=== PATIENT | male | born 1935 | race Caucasian/White ===

== ENCOUNTER 2022-03-04 09:47 | Outpatient (CLI) | payer OTHER, SELFPAY ==
--- NOTE | 2022-03-04 09:59 | ECHO_ITS ---
Patient Info Name: Leobardo Tinsley Age: 86 years : 1935 Gender: Male Ht: 62 in Wt: 147 lbs BSA: 1.73 m2 HR: 76 bpm BP: 144 / 85 mmHg Heart Rhythm: Sinus Rhythm Technical Quality: Fair Exam Date: 03/04/2022 10:24 AM Exam Location: [facility] Pulmonary Patient Status: Outpatient Admit Date: 03/04/2022 Staff Ordering Physician: Eliazar Moses DO Scallop Raker: Lidia Lin RDCS Attending Provider: Eliazar Moses DO Referring Physician: Josué RIDER; Exam Type: CA echo doppler color flow Study Info Indications I35.0 - Nonrheumatic aortic (valve) stenosis Complete two-dimensional, color flow and Doppler transthoracic echocardiogram is performed. Summary 1. Complete two-dimensional, color flow and Doppler transthoracic echocardiogram is performed. 2. Left ventricular chamber dimension is normal. 3. Left ventricular systolic function is normal, estimated at 65-70%. 4. The left ventricular diastolic function is grade I diastolic dysfunction. 5. E/e' 12 is mildly elevated. 6. 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 7. There is severe aortic valve stenosis with a peak velocity of 388 cm/s, mean gradient of 33 mmHg, and aortic valve area of 0.6 cm2. 8. There is trace aortic valve regurgitation. 9. The mitral valve has moderately calcified annulus. 10. There is mild tricuspid valve regurgitation. 11. No pulmonary hypertension, estimated pulmonary arterial systolic pressure is 39 mmHg. Left Ventricle E/e' 12 is mildly elevated. Left ventricular chamber dimension is normal. Left ventricular systolic function is normal, estimated at 65-70%. The left ventricular diastolic function is grade I diastolic dysfunction. Right Ventricle Right ventricular systolic function is normal and with normal TAPSE 2.1 cm. Right ventricular chamber dimension is normal. Left Atria Left atrial chamber dimension is normal. Right Atria Right atrial chamber dimension is normal. Aortic Valve The aortic valve is trileaflet. 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 There is severe aortic valve stenosis with a peak velocity of 388 cm/s, mean gradient of 33 mmHg, and aortic valve area of 0.6 cm2. There is trace aortic valve regurgitation. Pulmonic Valve There is no pulmonic regurgitation. Mitral Valve The mitral valve has moderately calcified annulus. There is no mitral valve stenosis. There is no mitral valve regurgitation. Tricuspid Valve There is mild tricuspid valve regurgitation. No pulmonary hypertension, estimated pulmonary arterial systolic pressure is 39 mmHg. Pericardium/Pleural There is no pericardial effusion. Inferior Vena Cava Normal inferior vena cava with >50% collapse upon inspiration consistent with normal right atrial pressure, 5 mmHg. Aorta The aortic root size at the sinus of Valsalva is normal. Left Ventricular Outflow Tract Name Value Normal LVOT 2D LVOT Diameter 2.0 cm LVOT Doppler LVOT Peak Gradient 3 mmHg LVOT Mean Gradient 2 mmHg LVOT VTI 18 cm LVOT VTI/AV VTI Ratio
== END 2022-03-04 09:48 | disposition home or self-care (01) ==
LOC: ANHCARD 09:48
PROVIDERS: PCP Family Medicine; Visit Provider Internal Medicine Cardiovascular Disease
DX: I35.0 Nonrheumatic aortic (valve) stenosis (principal)
CPT/HCPCS: 93306

== ENCOUNTER 2022-09-29 13:29 | Outpatient (CLI) | payer OTHER, SELFPAY ==
--- NOTE | 2022-09-29 13:37 | ECHO_ITS ---
Patient Info Name: Leobardo Tinsley Age: 86 years : 1935 Gender: Male Ht: 63 in Wt: 140 lbs BSA: 1.69 m2 HR: 84 bpm BP: 149 / 101 mmHg Heart Rhythm: Sinus Rhythm Technical Quality: Good Exam Date: 09/29/2022 2:10 PM Exam Location: [facility] Pulmonary Patient Status: Outpatient Admit Date: 09/29/2022 Staff Ordering Physician: Eliazar Moses DO Swaging Machine Adjuster: Jamir Malin RDCS Attending Provider: Eliazar Moses DO Referring Physician: Josué RIDER; Exam Type: CA echo doppler color flow Study Info Indications - Nonrheumatic aortic valve stenosis Complete two-dimensional, color flow and Doppler transthoracic echocardiogram is performed. Summary 1. Complete two-dimensional, color flow and Doppler transthoracic echocardiogram is performed. 2. Left ventricular chamber dimension is normal. 3. Left ventricular systolic function is normal, estimated at 55-60%. 4. There is mild concentric increased left ventricular wall thickness. 5. The left ventricular diastolic function is grade I diastolic dysfunction. 6. E/e' 12 is mildly elevated. 7. There is moderate aortic valve sclerosis. 8. There is moderate aortic valve stenosis with a peak velocity of 296 cm/s, mean gradient of 25 mmHg, and aortic valve area of 1.1 cm2. 9. There is mild aortic valve regurgitation. 10. The mitral valve has mildly calcified annulus. 11. There is trace mitral valve regurgitation. 12. There is mild tricuspid valve regurgitation. 13. No pulmonary hypertension, estimated pulmonary arterial systolic pressure is 37 mmHg. 14. There is trace pulmonic regurgitation. 15. Small atheroma in anterior and posterior aortic root. Left Ventricle E/e' 12 is mildly elevated. Left ventricular chamber dimension is normal. Left ventricular systolic function is normal, estimated at 55-60%. There is mild concentric increased left ventricular wall thickness. The left ventricular diastolic function is grade I diastolic dysfunction. Right Ventricle Right ventricular systolic function is normal and with normal TAPSE 2.6 cm. Right ventricular chamber dimension is normal. Left Atria Left atrial chamber dimension is normal. Right Atria Right atrial chamber dimension is normal. Aortic Valve The aortic valve is trileaflet. There is moderate aortic valve sclerosis. There is moderate aortic valve stenosis with a peak velocity of 296 cm/s, mean gradient of 25 mmHg, and aortic valve area of 1.1 cm2. There is mild aortic valve regurgitation. Pulmonic Valve There is trace pulmonic regurgitation. Mitral Valve The mitral valve has mildly calcified annulus. There is no mitral valve stenosis. There is trace mitral valve regurgitation. Tricuspid Valve There is mild tricuspid valve regurgitation. No pulmonary hypertension, estimated pulmonary arterial systolic pressure is 37 mmHg. Pericardium/Pleural There is no pericardial effusion. Inferior Vena Cava Normal inferior vena cava with >50% collapse upon inspiration consistent with normal right atrial pressure, 5 mmHg. Aorta Small atheroma in anterior and posterior aortic root. The aortic root size at the sinus of Valsalva is normal. Left Ventricular Outflow Tract Name Value Normal LVOT 2D LVOT Diameter 2.0 cm LVOT Doppler
== END 2022-09-29 13:30 | disposition home or self-care (01) ==
LOC: ANHCARD 13:30
PROVIDERS: PCP Family Medicine; Visit Provider Internal Medicine Cardiovascular Disease
DX: I35.0 Nonrheumatic aortic (valve) stenosis (principal); I36.1 Nonrheumatic tricuspid (valve) insufficiency
CPT/HCPCS: 93306

== ENCOUNTER 2023-12-17 12:41 | Observation (INO) | payer OTHER, MEDICARE, SELFPAY ==
[2023-12-17] VITALS (11 sets, daily range): BP systolic 120–148; BP diastolic 66–85; PULSE 69–100; RESP 16–22; TEMP 36.6–37.1; O2SAT 94–97
--- NOTE | ~2023-12-17 | MR_ITS ---
EXAMINATION: MR brain/brain stem wo con DATE: 12/18/2023 12:29 INDICATION: Dizziness. Possible posterior stroke. TECHNIQUE: Magnetic resonance imaging (MRI) of the brain and brainstem was performed without intraven ous contrast. Sequences included sagittal and axial T1-weighted SE, axial diffusion-weighted FS SE, a xial T2*-weighted GRE, axial 3D SWAN, axial T2-weighted FLAIR, and axial T2-weighted FSE. Apparent di ffusion coefficient (ADC) maps were created. COMPARISON: None. FINDINGS: There are no areas of restricted diffusion to suggest acute infarction. No intracranial hemorrhage or abnormal intracranial mass lesion. There are scattered areas of nonspecific increased T2-weighted si gnal intensity in the cerebral white matter, predominantly involving the deep and periventricular whi te matter. There are no intraparenchymal signal abnormalities seen on the other pulse sequences. The ventricles are symmetric and normal in size. There are no abnormal extra-axial fluid collections. Preston w voids are seen in the cerebral arteries on the T2-weighted sequences consistent with their expected patency. Changes of bilateral intraocular lens replacement. Mild mucosal thickening the bilateral et hmoid sinuses. IMPRESSION: 1. No acute intracranial process. 2. Mild scattered nonspecific periventricular predominant calcific white matter T2 hyperintensity whi ch is within normal limits for age and likely sequela of chronic small vessel ischemic disease. Reviewed, dictated and finalized at location A. IMPRESSION: 1. No acute intracranial process. 2. Mild scattered nonspecific periventricular predominant calcific white matter T2 hyperintensity which is within normal limits for age and likely sequela of chronic small vessel ischemic disease.
--- NOTE | ~2023-12-17 | XR_ITS ---
Clinical Indication: Dizziness, weakness PA and lateral views of the chest: Comparison: None Findings: The lungs are clear, without evidence of focal consolidation or pleural effusion. There is eventration of the right hemidiaphragm. Cardiomediastinal silhouette is within normal limits. Bones a nd soft tissues are unremarkable. Impression: Clear lungs. Eventration of the right hemidiaphragm. Reviewed, dictated and finalized at location M. Impression: Clear lungs. Eventration of the right hemidiaphragm.
--- NOTE | 2023-12-17 12:59 | ECG_ITS ---
Test Date: 2023-12-17 13:03:24 Measurements Intervals [place] Rate: 87 P: 55 NV: 171 QRS: -16 QRSD: 93 T: 60 QT: 352 QTc: 424 Interpretive Statements SINUS RHYTHM No previous ECG available for comparison Electronically Signed On 12-18-2023 16:13:12 CDT by Patricia Rojas M.D.
[2023-12-17 13:21] LABS: Basophils Absolute Auto 0.1 K/mm3 (0.0-0.1); Basophils Percent Auto 0.9 % (0.2-1.2); Eosinophils Absolute Auto 0.1 K/mm3 (0-0.3); Eosinophils Percent Auto 1.4 % (0-4.4); Hematocrit 45.4 % (42.0-52.0); Hemoglobin 14.8 g/dL (14.0-18.0); Immature Granulocyte Absolute 0.08 K/mm3 (0.00-0.031); Immature Granulocyte Percent A 0.9 % (0-0.5); Lymphocytes Absolute Auto 1.63 K/mm3 (0.9-3.2); Lymphocytes Percent Auto 19.3 % (18.3-44.2); Mean Corpuscular HGB Conc 32.6 g/dl (32-36); Mean Corpuscular Hemoglobin 30.7 pg (26-34); Mean Corpuscular Volume 94.2 fl (80-100); Mean Platelet Volume 9.3 fl (7.4-10.4); Monocytes Absolute Auto 0.8 K/mm3 (0.1-0.6); Neutrophils Absolute Auto 5.7 K/mm3 (1.3-6.7); Neutrophils Percent Auto 67.5 % (45.5-73.1); Platelet Count Result 298 k/mm3 (150-375); Red Blood Count 4.82 M/mm3 (4.6-6.20); White Blood Count 8.4 K/mm3 (4.5-10.0)
[2023-12-17 13:31] LABS: Alanine Aminotransferase 14 U/L (6-50); Albumin Level 4.5 g/dL (3.5-5.1); Alkaline Phosphatase 99 U/L (38-126); Anion Gap 8 mmol/L (4-12); Aspartate Amino Transferase 23 U/L (17-59); Bilirubin,Total 0.7 mg/dL (0.2-1.3); Blood Urea Nitrogen 28 mg/dL (9-20); Calcium 9.5 mg/dL (8.4-10.2); Carbon Dioxide 25 mmol/L (22-30); Chloride 104 mmol/L (98-107); Estimated Glomerular Filt Rate 41; Glucose 110 mg/dL (65-110); Potassium 4.9 mmol/L (3.4-5.0); Sodium 137 mmol/L (137-145)
[2023-12-17 13:43] LABS: Troponin I < 0.012 ng/mL (0.000-0.034)
[2023-12-17 14:55] LABS: Add Urine Microscopic? NO; Appearance Urine Clear (Clear); Bilirubin Urine Negative (Negative); Blood Urine Negative (Negative); Color Urine Yellow (Yellow); Glucose Urine UA Negative (Negative); Ketones Urine Negative (Negative); Leukocyte Esterase Ur Negative LEU/UL (Negative); Nitrate Urine Negative (Negative); Protein Urine Negative (Negative); Specific Grav Ur 1.016 (1.001-1.035); Urobilinogen Urine 0.2 mg/dL (<2.0)
--- NOTE | 2023-12-17 15:05 | PC.NURSE ---
Orthostatic VS negative. See flowsheet.
[2023-12-17] MEDS: TETANUS,DIPHTHERIA,AC PERTUSSIS ADULT (0.5 ML) BOOSTRIX IM (16:37)
[2023-12-17] MEDS: SODIUM CHLORIDE 0.9% IV 1,000 ML 999 ML IV CONT (16:46)
--- NOTE | 2023-12-17 16:47 | PC.NURSE ---
Per MD Johnson, verbal order given to administer 500mL of ordered 1000 mL bag.
[2023-12-17 16:48] LABS: Influenza A QL RT-PCR Negative (Negative); Influenza B QL RT-PCR Negative (Negative); RSV RNA, RT-PCR Negative (Negative); SARS-CoV-2 RNA PCR Negative (Negative)
--- NOTE | 2023-12-17 17:00 | ED.DIZZY ---
HPI - Dizziness General Chief Complaint: Dizziness Stated Complaint: dizziness Time Seen by Provider: 12/17/23 14:57 Source: patient Mode of arrival: ambulatory Limitations: no limitations History of Present Illness HPI Narrative: This is an 87-year-old male, with history of BPH and hypertension, who presents to the emergency department complaining of lightheadedness for the past 4 days. The patient notes some decreased appetite, though denies nausea, vomiting, bleeding, chest pain or shortness of breath. He states today, he stood and felt lightheaded, falling and landing on his elbows. He denies head injury or loss of consciousness. He was able to stand under his own power. He has no other complaints at this time. Related Data Home Medications Medication Instructions Recorded Confirmed mecobalamin (vitamin B12) 1,000 1,000 mcg PO DAILY 01/27/21 09/01/23 mcg chewable tablet Allergies Allergy/AdvReac Type Severity Reaction Status Date / Time No Known Allergies Allergy Unknown Verified 09/01/23 10:16 Review of Systems Review of Systems: All systems reviewed & are unremarkable except as noted in HPI and below PMFSH Past Medical History Medical History Anemia Aortic stenosis BPH loc w urin obs/LUTS Chronic renal insufficiency, stage III (moderate) External hemorrhoid Hyperlipidemia Hypertension Skin lesions Vitamin B12 deficiency Surgical History Surgical History No pertinent past surgical history Family History Family History Father Family history of lung cancer Social History Social History Social History: Living at home with , and other family members (son/daughter and grandkids) POA is , she is 16 years younger. Smoking status: Former smoker Second hand tobacco smoke exposure: Yes Smoking end date: 03/15/95 Alcohol intake: never Substance use: never Substance use type: does not use Lack of Transportation: No Lack of Food: Never True Current Housing: I Have Housing Concerned About Future Housing: No Difficulty Paying Gas/Electric Bills: No Difficulty Paying for Meds: No Currently Unemployed: No Education: Master's Degree or Higher Difficulty w/ Childcare or Family Care: No Living arrangements: with family Occupation/Education: retired Gender identity (if verbalized by the patient): Male Sexual Orientation (if Verbalized by the Patient): Straight or Heterosexual Spiritual care concerns: No Agree to blood products: Yes Exam Narrative: GENERAL: Well-developed, well-nourished, and in no acute distress. HEAD: Normocephalic, atraumatic. EYES: PERRLA and EOMI. ENT: Nares clear, no rhinorrhea or epistaxis. Mucous membranes dry. Oropharynx without tonsillar hypertrophy exudate or other lesions. CHEST: Clear to auscultation. No respiratory distress. No wheezes rales or rhonchi HEART: Regular rate and rhythm. No murmur heard. Normal peripheral pulses. ABDOMEN: Soft, nontender, nondistended, normal active bowel sounds. EXTREMITIES: Normal range of motion. No edema. SKIN: Skin tears of the bilateral elbows. Skin otherwise warm, dry, no rash. Poor skin turgor NEURO: Alert and oriented x3. No focal deficit. Moving all 4 limbs spontaneously PSYCH: Normal mood and affect. Course Course Emergency Course: 17:00 - CBC unremarkable. Chemistries demonstrate creatinine elevation of 1.6 with baseline of 1.1. Troponin negative. UA unremarkable. The patient tested negative for COVID, influenza and RSV. Chest x-ray not concerning for acute cardiopulmonary process. EKG not concerning for ischemia. I suspect dehydration as the cause of his creatinine elevation and lightheadedness. I discussed the patient with hospitalist, NELSON Jack
--- NOTE | 2023-12-17 17:41 | PM.IMHP ---
H&P: HPI History of Present Illness Date/Time: 12/17/23 17:41 Chief Complaint: Dizziness Narrative: 87 y/o M presents here with dizziness and ground-level fall with PMH of BPH, chronic renal insufficiency stage III, HLD, and HTN. The patient presents here from home for further evaluation of dizziness and ground level fall. The patient reports he initially started experiencing dizziness on Wednesday (12/13). He describes the dizziness as intermittent and feels as if the room is spinning. Initially started to subside after onset and returned over the last 2 days and has continued to worsen. Dizziness worsened with position changes (sitting to standing) and with eating a heavy meal. Improved with resting/laying still. Today, the patient reports he was getting up and out of his chair when he began to feel dizzy. He he then fell backwards onto his elbows without head strike or loss of consciousness. Sustained a small skin tear to his left forearm. Patient reports good appetite over the last few days. Denies any new or worsening congestion/rhinorrhea, or ear pain/fullness. Denies accompanying nausea, vomiting, chest pain, shortness of breath, focal weakness, focal numbness, changes in speech, changes in vision, diarrhea, constipation, or fever. The patient currently lives at home with family. Currently feels improved with IV fluids. Initial VS at presentation: 97.9? F, HR 90, RR 16, 136/70, and 94% on RA. ED workup showed: No leukocytosis, no anemia, creatinine 1.6 and GFR 41 (previously 1.19 and GFR 59 on 05/05/2023) admission a negative, UA unremarkable, and viral PCR negative. CXR showed clear lungs and event duration of the right hemidiaphragm. EKG showed sinus rhythm with rate of 87, awaiting formal read. Orthostatics negative, however taken post IV fluids. Review of Systems Review of Systems: All systems reviewed & are unremarkable except as noted in HPI and below PMFSH Past Medical History Medical History Anemia Aortic stenosis BPH loc w urin obs/LUTS Chronic renal insufficiency, stage III (moderate) External hemorrhoid Hyperlipidemia Hypertension Skin lesions Vitamin B12 deficiency Surgical History Surgical History No pertinent past surgical history Family History Family History Father Family history of lung cancer Social History Social History Social History: Living at home with , and other family members (son/daughter and grandkids) LIZZETH is , she is 16 years younger. Smoking status: Former smoker Second hand tobacco smoke exposure: Yes Smoking end date: 03/15/95 Alcohol intake: former Substance use: never Substance use type: does not use Do You Feel Safe in your Home?: Yes Lack of Transportation: No Lack of Food: Never True Current Housing: I Have Housing Concerned About Future Housing: No Difficulty Paying Gas/Electric Bills: No Difficulty Paying for Meds: No Currently Unemployed: No Education: Master's Degree or Higher Difficulty w/ Childcare or Family Care: No Living arrangements: with family Occupation/Education: retired Gender identity (if verbalized by the patient): Male Sexual Orientation (if Verbalized by the Patient): Straight or Heterosexual Spiritual care concerns: No Agree to blood products: Yes Meds Home Medications and Allergies Home Medications Medication Instructions Recorded Confirmed Type mecobalamin (vitamin B12) 1,000 1,000 mcg PO DAILY 01/27/21 12/17/23 History mcg chewable tablet azelastine 205.5 mcg (0.15 %) 2 spray intranasal DAILY #30 mL 01/14/22 12/17/23 Rx nasal spray (Astepro Allergy) hydrochlorothiazide 12.5 mg tablet 12.5 mg PO DAILY #90 tabs 03/15/23 12/17/23 Rx finasteride 5 mg tablet
--- NOTE | 2023-12-17 18:07 | PC.NURSE ---
Dinner tray ordered for pt to be sent to room 307.
--- NOTE | 2023-12-17 18:28 | ADMGEN ---
This patient, Leobardo Tinsley, was admitted to [facility] Surg Room 307-02. Patient/family oriented to hospital policies and general routines including ID bracelet, bed and alarms, visiting hours, pain management, procedures, bathroom and other care routines, personal items, smoking policy, room service/diet, and visiting hours. Information on how to activate the Rapid Response Team has been discussed. Patient/Family are encouraged to report perceived risks to care and to ask questions if they do not understand what they are told or what they should do.
[2023-12-17] MEDS: SODIUM CHLORIDE 0.9% IV 1,000 ML 150 ML IV CONT (20:19)
--- NOTE | 2023-12-17 21:50 | PC.NURSE ---
patient states the dizziness seems to have resolved, even as he ambulates to the bathroom
[2023-12-18] VITALS (8 sets, daily range): BP systolic 110–159; BP diastolic 58–81; PULSE 58–104; RESP 12–18; TEMP 36.4–37; O2SAT 94–98
[2023-12-18 06:25] LABS: Basophils Absolute Auto 0.1 K/mm3 (0.0-0.1); Basophils Percent Auto 1.1 % (0.2-1.2); Eosinophils Absolute Auto 0.3 K/mm3 (0-0.3); Eosinophils Percent Auto 3.5 % (0-4.4); Hematocrit 37.7 % (42.0-52.0); Hemoglobin 11.9 g/dL (14.0-18.0); Immature Granulocyte Absolute 0.06 K/mm3 (0.00-0.031); Immature Granulocyte Percent A 0.7 % (0-0.5); Lymphocytes Percent Auto 23.1 % (18.3-44.2); Mean Corpuscular HGB Conc 31.6 g/dl (32-36); Mean Platelet Volume 9.7 fl (7.4-10.4); Monocytes Absolute Auto 0.9 K/mm3 (0.1-0.6); Neutrophils Percent Auto 60.6 % (45.5-73.1); Platelet Count Result 267 k/mm3 (150-375); Red Blood Count 3.97 M/mm3 (4.6-6.20); White Blood Count 8.2 K/mm3 (4.5-10.0)
[2023-12-18 06:32] LABS: Anion Gap 7 mmol/L (4-12); Blood Urea Nitrogen 25 mg/dL (9-20); Calcium 8.3 mg/dL (8.4-10.2); Carbon Dioxide 21 mmol/L (22-30); Chloride 110 mmol/L (98-107); Estimated CRCL calculation 34 ml/min; Estimated Glomerular Filt Rate > 60; Glucose 83 mg/dL (65-110); Potassium 4.5 mmol/L (3.4-5.0); Sodium 138 mmol/L (137-145)
[2023-12-18] MEDS: FINASTERIDE 5 MG TABLET PO (08:46)
[2023-12-18] MEDS: CYANOCOBALAMIN 1,000 MCG TABLET 1000 MCG PO (08:46)
[2023-12-18] MEDS: lisinopriL 5 MG TABLET PO (08:46)
--- NOTE | 2023-12-18 09:49 | PC.NURSE ---
Orthostatic BPS at 0940 Lying- BP- 136/78, pulse 99 Sitting- BP 139/79, Pulse 104 Stanf=ding- 159/78, pulse -99
--- NOTE | 2023-12-18 10:16 | PM.IMPN ---
Progress Note: A&P Assessment and Plan (1) Dizziness: Code(s): R42 - Dizziness and giddiness Status: Acute Assessment and Plan: - CXR, UA, Viral PCR, and EKG unremarkable - no focal deficits on exam - orthostatics negative post-IV fluids, reassess daily - continue IV fluids. Reports improvement in dizziness with initial fluids in the ED. - MRI brain and ECHO pending PT/OT monitor (2) Acute kidney injury superimposed on CKD: Code(s): N17.9 - Acute kidney failure, unspecified; N18.9 - Chronic kidney disease, unspecified Status: Acute Assessment and Plan: resolved likely from dehydration Cr 1.1 from 1.6 (3) Hypertension: Qualifiers: Hypertension type: primary hypertension Qualified Code(s): I10 - Essential (primary) hypertension Code(s): I10 - Essential (primary) hypertension Status: Acute Assessment and Plan: - chronic, currently 141/85 - home medications: Hold HCTZ, continue lisinopril. - hydralazine p.r.n. for BP greater than 180/90 - monitor Plan Diet: Heart healthy DVT Prophylaxis: Sq Lovenox Lines: Peripheral Code Status: Full code Subjective Date/time seen: 12/18/23 10:16 Interval history: patient noted dizziness has improved, but still present MRI brain pending Review of Systems Review of Systems: All systems reviewed & are unremarkable except as noted in HPI and below Exam Narrative: General: alert and comfortable Eyes: EOMI, PERRLA ENNT External ears normal, Neck is supple, no masses, Respiratory systems: Clear to auscultation Cardiovascular S1, S2, normal rhythm, no murmur, rub, or gallop; no thrill or palpable murmurs on palpation. Gastrointestinal: soft, non-tender, and non-distended abdomen with no masses; BS present Skin: no rash, lesions, ulcerations, subcutaneous nodules or induration Musculoskeletal: no abnormality and no tenderness, normal ROM Neurologic: Alert and oriented x3, non focal Mental Status Exam: normal affect Objective Data Vital Signs Vital Signs: Vital Signs - 24 hr 12/17/23 12:55 12/17/23 15:00 12/17/23 15:02 Temperature 97.9 F Pulse Rate 90 83 93 Respiratory Rate 16 Blood Pressure 136/70 148/82 H 140/84 Pulse Oximetry 94 Oxygen Delivery Room Air 12/17/23 15:04 12/17/23 14:58 12/17/23 15:00 Temperature Pulse Rate 97 97 88 Respiratory Rate 17 22 H Blood Pressure 141/85 H 141/83 H 148/82 H Pulse Oximetry 96 94 Oxygen Delivery 12/17/23 15:30 12/17/23 16:16 12/17/23 17:01 Temperature Pulse Rate 83 75 69 Respiratory Rate 22 H 20 16 Blood Pressure 135/84 123/68 120/70 Pulse Oximetry 97 95 96 Oxygen Delivery 12/17/23 17:16 12/17/23 17:31 12/17/23 20:00 Temperature Pulse Rate 69 75 Respiratory Rate 18 19 Blood Pressure 132/69 124/66 Pulse Oximetry 95 97 Oxygen Delivery Room Air 12/17/23 20:25 12/18/23 05:35 12/18/23 08:00 Temperature 98.7 F 97.5 F L Pulse Rate 100 58 L Respiratory Rate 20 18 Blood Pressure 126/76 148/81 H Pulse Oximetry 94 98 Oxygen Delivery Room Air 12/18/23 09:21 12/18/23 09:51 12/18/23 09:52 Temperature Pulse Rate 99 104 H Respiratory Rate Blood Pressure 136/78 139/73 Pulse Oximetry 95 Oxygen Delivery Room Air 12/18/23 09:52 Temperature Pulse Rate 99 Respiratory Rate Blood Pressure 159/78 H Pulse Oximetry Oxygen Delivery Intake/Output Intake/Output: Intake & Output 12/15/23 12/16/23 12/17/23 12/18/23 23:59 23:59 23:59 23:59 Intake Total 1000 1290 Balance 1000 1290 Meds/Results Medications: Active Medications Generic Name Dose Route Start Last Admin Trade Name Freq PRN Reason Stop Dose Admin Acetaminophen 650 mg 12/17/23 16:58 Acetaminophen 325 Mg Tablet PO Q4H PRN Mild Pain (1-3) or Fever Atorvastatin Calcium 10 mg 12/19/23 09:00 Atorvastatin 10 Mg Tablet PO SuWe@0900 ROB Prasad
[2023-12-18] MEDS: MECLIZINE HCL 25 MG TABLET PO (17:37)
[2023-12-19 05:38] VITALS: BP 104/57; PULSE 62; RESP 14; TEMP 36.8; O2SAT 95
[2023-12-19 05:40] LABS: Basophils Absolute Auto 0.1 K/mm3 (0.0-0.1); Basophils Percent Auto 0.6 % (0.2-1.2); Eosinophils Absolute Auto 0.3 K/mm3 (0-0.3); Eosinophils Percent Auto 3.2 % (0-4.4); Hematocrit 38.9 % (42.0-52.0); Hemoglobin 12.6 g/dL (14.0-18.0); Immature Granulocyte Absolute 0.07 K/mm3 (0.00-0.031); Immature Granulocyte Percent A 0.9 % (0-0.5); Lymphocytes Absolute Auto 1.66 K/mm3 (0.9-3.2); Lymphocytes Percent Auto 20.5 % (18.3-44.2); Mean Corpuscular HGB Conc 32.4 g/dl (32-36); Mean Corpuscular Hemoglobin 30.7 pg (26-34); Mean Corpuscular Volume 94.6 fl (80-100); Mean Platelet Volume 9.5 fl (7.4-10.4); Monocytes Percent Auto 11.9 % (2.6-8.5); Neutrophils Absolute Auto 5.1 K/mm3 (1.3-6.7); Neutrophils Percent Auto 62.9 % (45.5-73.1); Platelet Count Result 240 k/mm3 (150-375); Red Blood Count 4.11 M/mm3 (4.6-6.20); Red Cell Distribution Width 12.8 % (11.5-14.5); White Blood Count 8.1 K/mm3 (4.5-10.0)
[2023-12-19 05:55] LABS: Alanine Aminotransferase 14 U/L (6-50); Albumin Level 3.6 g/dL (3.5-5.1); Alkaline Phosphatase 80 U/L (38-126); Anion Gap 7 mmol/L (4-12); Aspartate Amino Transferase 23 U/L (17-59); Bilirubin,Total 0.7 mg/dL (0.2-1.3); Blood Urea Nitrogen 25 mg/dL (9-20); Calcium 8.7 mg/dL (8.4-10.2); Carbon Dioxide 25 mmol/L (22-30); Chloride 107 mmol/L (98-107); Estimated CRCL calculation 31 ml/min; Estimated Glomerular Filt Rate 57; Glucose 92 mg/dL (65-110); Magnesium 2.3 mg/dL (1.6-2.3); Potassium 4.2 mmol/L (3.4-5.0); Sodium 139 mmol/L (137-145)
[2023-12-19 08:00] VITALS: BP 104/57; PULSE 62; RESP 14; TEMP 36.8; O2SAT 95
[2023-12-19] MEDS: CYANOCOBALAMIN 1,000 MCG TABLET 1000 MCG PO (08:59)
[2023-12-19] MEDS: MECLIZINE HCL 25 MG TABLET PO (08:59)
[2023-12-19] MEDS: lisinopriL 5 MG TABLET PO (08:59)
[2023-12-19] MEDS: FINASTERIDE 5 MG TABLET PO (08:59)
[2023-12-19] MEDS: ENOXAPARIN 40 MG/0.4 ML SYRINGE SUB-Q (09:03)
[2023-12-19] MEDS: ATORVASTATIN 10 MG TABLET PO (09:03)
[2023-12-19 09:41] VITALS: O2SAT 95
--- NOTE | 2023-12-19 13:19 | PM.IMPN ---
Progress Note: A&P Assessment and Plan (1) Dizziness: Code(s): R42 - Dizziness and giddiness Status: Acute Assessment and Plan: - Patient describes horizontal visual field disturbance, not veritgo and no lightheadedness - CXR, UA, Viral PCR, and EKG unremarkable - no focal deficits on exam - orthostatics negative post-IV fluids, reassess daily - continue IV fluids. Reports improvement in dizziness with initial fluids in the ED. - MRI brain and ECHo no concerning changes PT/OT continue Meclizine Neurology consulted (2) Acute kidney injury superimposed on CKD: Code(s): N17.9 - Acute kidney failure, unspecified; N18.9 - Chronic kidney disease, unspecified Status: Acute Assessment and Plan: resolved likely from dehydration Cr 1.1 from 1.6 (3) Hypertension: Qualifiers: Hypertension type: primary hypertension Qualified Code(s): I10 - Essential (primary) hypertension Code(s): I10 - Essential (primary) hypertension Status: Acute Assessment and Plan: - BP soft 104/57 - home medications: Hold HCTZ, continue lisinopril. - monitor Plan Diet: Heart healthy DVT Prophylaxis: Sq Lovenox Lines: Peripheral Code Status: Full code Subjective Date/time seen: 12/19/23 13:19 Interval history: Patient described horizontal visual field disturbance and denies vertigo or lightheadedness orthostatic vital signs negative Neurology consulted Review of Systems Review of Systems: All systems reviewed & are unremarkable except as noted in HPI and below Exam Narrative: General: alert and comfortable Eyes: EOMI, PERRLA ENNT External ears normal, Neck is supple, no masses, Respiratory systems: Clear to auscultation Cardiovascular S1, S2, normal rhythm, no murmur, rub, or gallop; no thrill or palpable murmurs on palpation. Gastrointestinal: soft, non-tender, and non-distended abdomen with no masses; BS present Skin: no rash, lesions, ulcerations, subcutaneous nodules or induration Musculoskeletal: no abnormality and no tenderness, normal ROM Neurologic: Alert and oriented x3, non focal Mental Status Exam: normal affect Const: General: comfortable and no acute distress Other: , male, elderly, nontoxic HENMT: Ears: TM's normal bilaterally Face/Nose/Sinus: Normal nares present Mouth: Yes moist mucous membranes Other: Right ear canal with some irritation, no signs of infection. +hearing aids bilaterally. Eyes: General: appearance normal, both eyes and all related structures Sclera: sclerae normal Pupils: Equal, round and reactive pupils present EOM: EOMs intact bilaterally Other: Brief horizontal nystagmus with extreme lateral gaze, otherwise no abnormalities. Resp: Effort & Inspection: normal respiratory effort Auscultation: clear to auscultation bilaterally Cardio: Rate: regular rate Rhythm: regular rhythm Other: +murmur, no ectopy or rub. GI: Other: Abdomen soft, nondistended, nontender. Skin: General skin exam: normal color and no rashes or lesions noted Other: Small skin tear to left forearm. Neuro: Cranial nerves: Yes Equal, round and reactive pupils present Speech: normal speech Motor exam (neuro): 5/5 motor strength present throughout Sensory Exam: normal sensation Other: A&O x4. No dysarthria, vision changes, or gaze palsy on exam. Extrem: General: normal to inspection Psych: Mental Status: mental status grossly normal Affect: normal affect Other: Good insight and judgment, pleasant Objective Data Vital Signs Vital Signs: Vital Signs - 24 hr 12/18/23 14:00 12/18/23 20:00 12/18/23 20:23 Temperature 98.6 F 98.0 F 98.0 F Pulse Rate 98 84 84 Respiratory Rate 18 12 12 Blood Pressure 117/58 L 110/61 110/61 Pulse Oximetry 95 94 94 Oxygen Delivery Fraction of Inspired Oxygen 12/18/23 20:22 12/18/23 20:22 12/18/23 20:00 Temperat
--- NOTE | 2023-12-19 13:54 | WPDNEURCNPN ---
Assessment and Plan Assessment and plan (1) Dizziness: Code(s): R42 - Dizziness and giddiness Status: Acute Plan Complaints of dizziness with fairly nonfocal neurological examination and also normal routine lab studies, he is being monitor in the hospital for any change in the mental status MRI of the brain has been done with no evidence of any stroke if necessary echocardiogram can be obtained to rule out the possibility of any worsening of aortic stenosis. In the meantime he can be continued on the same medication. Consult date: 12/19/23 HPI: Leobardo Tinsley is a 87 year old maleAdmitted to the hospital through the emergency room for the complaint of lightheadedness over the last few days along with the decreased appetite reportedly on the day of visit to the ER he stood and felt lightheaded falling and landing on his elbows. He did not give any history of head trauma or unconsciousness and he was able to stand under his own power. He reported that he has takes only vitamin B 12 tablet daily. He is not allergic to any medications. He does have ongoing history of aortic stenosis, his stage III chronic renal disease, hypertension, and vitamin B12 deficiency. He is a former smoker, never alcohol intake or, and in the emergency room he was documented to have fairly normal examination. His vital signs were normal including a blood pressure of 136/70, normal CBC with hemoglobin 14.8 platelet count 298 and WBCs 8.4, normal basic metabolic panel with blood sugar of 110 normal UA, and negative for screening for the viral infection including influenza a, influenza B, RSV, and SARs COVID, his EKG did not reveal any atrial fibrillation, he had MRI of the brain today which is normal except the nonspecific periventricular pre dominant calcific white matter, x-ray chest revealed the even duration of the right hemidiaphragm, his home medications did include lisinopril 5mg daily, atorvastatin 10mg daily, hydrochlorothiazide 12.5mg daily, and finasteride 5mg daily. As mentioned before he has electrolytes were normal. [facility] Past Medical History Medical History Anemia Aortic stenosis BPH loc w urin obs/LUTS Chronic renal insufficiency, stage III (moderate) External hemorrhoid Hyperlipidemia Hypertension Skin lesions Vitamin B12 deficiency Surgical History Surgical History No pertinent past surgical history Family History Family History Father Family history of lung cancer Social History Social History Social History: Living at home with , and other family members (son/daughter and grandkids) LIZZETH is , she is 16 years younger. Smoking status: Former smoker Second hand tobacco smoke exposure: Yes Smoking end date: 03/15/95 Alcohol intake: former Substance use: never Substance use type: does not use Do You Feel Safe in your Home?: Yes Lack of Transportation: No Lack of Food: Never True Current Housing: I Have Housing Concerned About Future Housing: No Difficulty Paying Gas/Electric Bills: No Difficulty Paying for Meds: No Currently Unemployed: No Education: Master's Degree or Higher Difficulty w/ Childcare or Family Care: No Living arrangements: with family Occupation/Education: retired Gender identity (if verbalized by the patient): Male Sexual Orientation (if Verbalized by the Patient): Straight or Heterosexual Spiritual care concerns: No Agree to blood products: Yes Meds Home Medications and Allergies Home Medications Medication Instructions Recorded Confirmed Type mecobalamin (vitamin B12) 1,000 1,000 mcg PO DAILY 01/27/21 12/17/23 History mcg chewable tablet azelastine 205.5 mcg (0.15 %) 2 spray intranasal DAILY #30 mL 01/14/22 12/17/23 Rx nasal spray (Astepro Al
--- NOTE | 2023-12-19 15:19 | PM.DS ---
DS: Admitting Diagnosis Discharge Date 12/19/23 Admitting Diagnosis Dizziness DS: Summary Hospital Course Hospital Course: 87 y/o M presents here with dizziness and ground-level fall with PMH of BPH, chronic renal insufficiency stage III, HLD, and HTN. The patient presents here from home for further evaluation of dizziness and ground level fall. The patient reports he initially started experiencing dizziness on Wednesday (12/13). He describes the dizziness as intermittent and feels as if the room is spinning. Initially started to subside after onset and returned over the last 2 days and has continued to worsen. Dizziness worsened with position changes (sitting to standing) and with eating a heavy meal. Improved with resting/laying still. Today, the patient reports he was getting up and out of his chair when he began to feel dizzy. He he then fell backwards onto his elbows without head strike or loss of consciousness. Sustained a small skin tear to his left forearm. Patient reports good appetite over the last few days. Denies any new or worsening congestion/rhinorrhea, or ear pain/fullness. Denies accompanying nausea, vomiting, chest pain, shortness of breath, focal weakness, focal numbness, changes in speech, changes in vision, diarrhea, constipation, or fever. The patient currently lives at home with family. Currently feels improved with IV fluids. Initial VS at presentation: 97.9? F, HR 90, RR 16, 136/70, and 94% on RA. ED workup showed: No leukocytosis, no anemia, creatinine 1.6 and GFR 41 (previously 1.19 and GFR 59 on 05/05/2023) admission a negative, UA unremarkable, and viral PCR negative. CXR showed clear lungs and event duration of the right hemidiaphragm. EKG showed sinus rhythm with rate of 87, awaiting formal read. Orthostatics negative, however taken post IV fluids. MRI brain unremarkable, patient noted that symptoms have markedly improved. He however described it as horizontal visual field disturbance and not outright dizziness or lightheadedness. orthostatic vital signs negative. Patient was started on MEclizine and Neurology consulted. Patient insisted on leaving the hospital today and neurology stated he will follow up outpatient for further workup. F/u with PCP in 3-5 days f/u with neurology as instructed PT/OT recommends home discharge Assessment and Plan (1) Dizziness: Code(s): R42 - Dizziness and giddiness Status: Acute Assessment and Plan: - Patient describes horizontal visual field disturbance, not veritgo and no lightheadedness - CXR, UA, Viral PCR, and EKG unremarkable - no focal deficits on exam - orthostatics negative post-IV fluids, reassess daily - continue IV fluids. Reports improvement in dizziness with initial fluids in the ED. - MRI brain no concerning changes PT/OT continue Meclizine Neurology eval noted (2) Acute kidney injury superimposed on CKD: Code(s): N17.9 - Acute kidney failure, unspecified; N18.9 - Chronic kidney disease, unspecified Status: Acute Assessment and Plan: resolved likely from dehydration Cr 1.1 from 1.6 (3) Hypertension: Qualifiers: Hypertension type: primary hypertension Qualified Code(s): I10 - Essential (primary) hypertension Code(s): I10 - Essential (primary) hypertension Status: Acute Assessment and Plan: - BP soft 104/57 - home medications: continue Lisinopril. HCTZ held. f/u with PCP in 3-5 days - monitor F/u with PCP in 3-5 days, F/u with neurology as instructed Time Spent with Patient Time attestation: Total time spent providing and/or coordinating discharge services: DS: Data Data Completed and Pending Labs on day of discharge: Labs from last 24 hours 12/19/23 05:13 WBC 8.1 RBC 4.11 L Hgb 12.6 L Hct 38.9 L MCV 94.6 MCH 30.7 MCHC 32.4 RDW 12.8 Plt Count 240 MPV 9.5 Immature Gran % (Auto) 0.9 H Neut % (Auto) 62.9 Lymph % (Auto)
== END 2023-12-19 16:00 | disposition home or self-care (01) ==
LOC: ANHED 15:39 → ANH3MEDSUR 18:13
PROVIDERS: Admitting Provider Internal Medicine; Emergency Provider Preventive Medicine Aerospace Medicine; PCP Family Medicine; Visit Provider Internal Medicine
DX: R42 Dizziness and giddiness (principal); N17.9 Acute kidney failure, unspecified; E86.0 Dehydration; S51.812A Laceration without foreign body of left forearm, initial encounter; W18.30XA Fall on same level, unspecified, initial encounter; I12.9 Hypertensive chronic kidney disease with stage 1 through stage 4 chronic kidney disease, or unspecified chronic kidney disease; N18.30 Chronic kidney disease, stage 3 unspecified; I35.0 Nonrheumatic aortic (valve) stenosis; E53.8 Deficiency of other specified B group vitamins; E78.5 Hyperlipidemia, unspecified; N40.1 Benign prostatic hyperplasia with lower urinary tract symptoms; N13.8 Other obstructive and reflux uropathy; Z20.822 Contact with and (suspected) exposure to COVID-19; Z23 Encounter for immunization; Z87.891 Personal history of nicotine dependence; Z79.899 Other long term (current) drug therapy
CPT/HCPCS: 36415; 70551; 71046; 80048; 80053; 81003; 83735; 84484; 85025; 87637; 90471; 90715; 93005; 96360; 96361; 96372; 97161; 99285; A9270; G0378; J1650; J7030

== ENCOUNTER 2023-12-28 11:18 | Outpatient (CLI) | payer OTHER, SELFPAY ==
--- NOTE | ~2023-12-28 | US_ITS ---
EXAMINATION: US carotid duplex BI DATE: 12/28/2023 12:07 INDICATION: Dizziness, ataxia and cerebrovascular disease TECHNIQUE: Grayscale, color Doppler, and pulsed Doppler images of the cervical carotid arteries were obtained. The degree of vessel stenosis is placed in one of the following categories: normal, <50%, 5 0-69%, >=70% but less than near-occlusion, near-occlusion, or total occlusion. Note that percent sten osis relative to normal distal artery lumen diameter is indirectly measured from velocity measurement s as described by Marcel, et al. Radiology 2003; 229:340-346. Notes: Normal: Peak systolic velocity <125 centimeters/sec and no plaque <50%. Peak systolic velocity <125 ( EDV <40; ICA/CCA PSV ratio <2.0; used these factors only a tandem lesions or low cardiac output or co ntralateral disease) 50-69 %: PSV 125-230 (EDV 40-100; ratio 2-4) >= 70% but less than near occlusion: PSV greater than 230 (EDV > 100; ratio> 4.0) Near Occlusion: PSV that is variable; markedly narrowed lumen Occlusion: Absent flow on color/spectral Doppler and no lumen on geronimo scale. COMPARISON: None. FINDINGS: RIGHT: The right common carotid artery (CCA) peak systolic velocity (PSV) is 75 cm/s. The right internal car otid artery (ICA) PSV is 151 cm/s. The right ICA end-diastolic velocity (EDV) is 99 cm/s. The right I CA/CCA PSV ratio is 2.0. The external carotid artery (ECA) PSV is 116 cm/s. There is antegrade flow i n the right vertebral artery. LEFT: The left CCA PSV is 114 cm/s. The left ICA PSV is 113 cm/s. The left ICA EDV is 24 cm/s. The left ICA /CCA PSV ratio is 1.0. The ECA PSV is 95 cm/s. There is antegrade flow in the left vertebral artery. IMPRESSION: 1. 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 2. Less than 50% stenosis in the left internal carotid artery by sonographic criteria. Reviewed, dictated and finalized at location B. IMPRESSION: 1. 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 2. Less than 50% stenosis in the left internal carotid artery by sonographic cr iteria.
== END 2023-12-28 11:19 | disposition home or self-care (01) ==
LOC: ANHIMG 11:19
PROVIDERS: PCP Family Medicine; Visit Provider Psychiatry & Neurology Neurology
DX: R27.0 Ataxia, unspecified (principal); I67.9 Cerebrovascular disease, unspecified; I77.9 Disorder of arteries and arterioles, unspecified; I65.23 Occlusion and stenosis of bilateral carotid arteries
CPT/HCPCS: 93880

== ENCOUNTER 2024-02-01 13:24 | Outpatient (CLI) | payer OTHER, SELFPAY ==
--- NOTE | 2024-02-01 13:37 | ECHO_ITS ---
Patient Info Name: Leobardo Tinsley Age: 88 years : 1935 Gender: Male Ht: 63 in Wt: 147 lbs BSA: 1.74 m2 HR: 79 bpm BP: 155 / 89 mmHg Technical Quality: Good Exam Date: 02/01/2024 2:09 PM Exam Location: Echo Lab Patient Status: Outpatient Admit Date: 02/01/2024 Staff Ordering Physician: Yael Agee MD Supervising Nurse: MARTITA Attending Provider: Yael Agee MD Referring Physician: Eliazar Moses DO; Exam Type: CA echo doppler color flow Study Info Indications I35.0 - Nonrheumatic aortic (valve) stenosis Complete two-dimensional, color flow and Doppler transthoracic echocardiogram is performed. Summary 1. Complete two-dimensional, color flow and Doppler transthoracic echocardiogram is performed. 2. Left ventricular chamber dimension is normal. 3. Left ventricular systolic function is normal, estimated at 60-65%. 4. There is moderate concentric increased left ventricular wall thickness. 5. The left ventricular diastolic function is grade I diastolic dysfunction. 6. E/e' 8 is minimally elevated. 7. The aortic valve is not well visualized. Cannot determine number of aortic valve leaflets due to calcifications. 8. 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 9. There is severe aortic valve stenosis with a peak velocity of 395 cm/s, mean gradient of 37 mmHg, and aortic valve area of 0.7 cm2. 10. There is trace aortic valve regurgitation. 11. The mitral valve has moderately calcified annulus. 12. There is mild mitral valve regurgitation. 13. Mild pulmonary hypertension, estimated pulmonary arterial systolic pressure is 42 mmHg. Left Ventricle E/e' 8 is minimally elevated. Left ventricular chamber dimension is normal. Left ventricular systolic function is normal, estimated at 60-65%. There is moderate concentric increased left ventricular wall thickness. The left ventricular diastolic function is grade I diastolic dysfunction. Right Ventricle Right ventricular systolic function is normal and with normal TAPSE 2.3 cm. Right ventricular chamber dimension is normal. Left Atria Left atrial chamber dimension is normal. Right Atria Right atrial chamber dimension is normal. Aortic Valve The aortic valve is not well visualized. Cannot determine number of aortic valve leaflets due to calcifications. 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 There is severe aortic valve stenosis with a peak velocity of 395 cm/s, mean gradient of 37 mmHg, and aortic valve area of 0.7 cm2. There is trace aortic valve regurgitation. Pulmonic Valve There is no pulmonic regurgitation. Mitral Valve The mitral valve has moderately calcified annulus. There is no mitral valve stenosis. There is mild mitral valve regurgitation. Tricuspid Valve There is no tricuspid valve regurgitation. Mild pulmonary hypertension, estimated pulmonary arterial systolic pressure is 42 mmHg. Pericardium/Pleural There is no pericardial effusion. Inferior Vena Cava Normal inferior vena cava with >50% collapse upon inspiration consistent with normal right atrial pressure, 5 mmHg. Aorta The aortic root size at the sinus of Valsalva is normal. Left Ventricular Outflow Tract Name Value Normal LVOT 2D LVOT Diameter 2.0 cm LVOT Doppler LVOT Peak Velocity 90 cm/s LVOT Peak Gradient 3 mmHg LVOT Mean Gradient 2 mmHg LVOT VTI 25 cm LVOT VTI/AV VTI Ratio 0.2 LVOT Stroke Volume 78 ml LVOT CO 5.2 l/min LVOT CI 3.0 l/min/m2 Pulmonic Valve Name Value Normal RVOT Doppler RVOT Peak Gradient 3 mmHg PV Doppler PV Peak Velocity 107 cm/s PV Peak Gradient 5 mmHg Mitral Valve Name Value Normal MV Doppler MV Peak Gradient 8 mmHg MV Mean Gradient 3 mmHg MV Decel [place] 267 cm/s2 MV PHT 68 ms MV Area (PHT) 3.2 cm2 4.0-5.0 MV Area (Cont Eq VTI) 2.3 cm2 MV Diastolic Function MV E Peak Velocity 62 cm/s MV A Peak Velocity 119 cm/s MV E/A 0.5 MV Decel Time 234 ms MV Annular TDI MV Septal e' Velocity 6.6 cm/s >=8.0 MV E/e' (Septal) 9.4 <=8.0 MV Lateral e' Velocity 7.5 cm/s >=10.0 MV E/e' (Lateral) 8.3 <=8.0 MV e' Average 7.07 MV E/e' (Average) 8.9 Tricuspid Valve Name Value Normal TV Regurgitation Doppler TR Peak Velocity 303 cm/s TR Peak Gradient 37 mmHg Estimated PAP/RSVP RA Pressure 5 mmHg <=5 PA Systolic Pressure 42 mmHg <36 RV Systolic Pressure 42 mmHg <36 TV Annular TDI TV Lateral O[place]da s' Velocity 9.5 cm/s 9.5-18.7 Aorta Name Value Normal Ascending Aorta Ao Root Diameter (MM) 3.2 cm Ao Root Diam Index (MM) 1.8 cm/m2 Ao [place] Diameter 2.4 cm 2.6-3.2 Aortic Valve Name Value Normal AV Doppler AV Peak Velocity 395 cm/s AV Peak Gradient 63 mmHg AV Mean Gradient 37 mmHg AV VTI 116 cm AV Area (Cont Eq VTI) 0.7 cm2 >=3.0 AV Area (Cont Eq Rashaad) 0.7 cm2 AV V1/V2 Ratio 0.23 AV Regurgitation 2D LVOT Area 3.2 cm2 Ventricles Name Value Normal LV Dimensions 2D/MM IVS Diastolic Thickness (2D) 1.5 cm 0.6-1.0 LVID Diastole (2D) 4.2 cm 4.2-5.8 LVIW Diastolic Thickness (2D) 1.5 cm 0.6-1.0 LVID Systole (2D) 2.9 cm 2.5-4.0 LVOT Diameter 2.0 cm LV Mass (2D Cubed) 246.40 g 88.00-224.00 LV Mass Index (2D Cubed) 142 g/m2 49-115 Relative Wall Thickness (2D) 0.69 LV Fractional Shortening/Ejection Fraction 2D/MM LV Fractional Shortening (2D) 31 % 25-43 LV EF (2D Teicholz) 59 % 52-72 LV Diastolic Volume (4C MOD) 100 ml LV EF (4C MOD) 58 % LV Diastolic Volume (2C MOD) 72 ml LV EF (2C MOD) 68 % LV Diastolic Volume (BP MOD) 85 ml 62-150 LV Diastolic Volume Index (BP MOD) 49 ml/m2 34-74 LV Systolic Volume (BP MOD) 34 ml 21-61 LV Systolic Volume Index (BP MOD) 19 ml/m2 11-31 LV EF (BP MOD) 61 % 52-72 LV Diastolic Length (4C) 7.6 cm LV Systolic Length (4C) 6.4 cm LV Stroke Volume (4C MOD) 58 ml Atria Name Value Normal LA Dimensions LA Dimension (MM) 3.9 cm 3.0-4.1 LA Volume (4C A-L) 35 ml LA Volume (BP A-L) 48 ml Report Signatures
== END 2024-02-01 13:25 | disposition home or self-care (01) ==
PROVIDERS: PCP Family Medicine; Referring Provider Internal Medicine Cardiovascular Disease; Visit Provider Psychiatry & Neurology Neurology
DX: I35.0 Nonrheumatic aortic (valve) stenosis (principal); I08.3 Combined rheumatic disorders of mitral, aortic and tricuspid valves
CPT/HCPCS: 93306

== ENCOUNTER 2024-08-14 13:26 | Outpatient (CLI) | payer OTHER, SELFPAY ==
--- NOTE | 2024-08-14 14:02 | ECHO_ITS ---
Patient Info Name: Leobardo Tinsley Age: 88 years : 1935 Gender: Male Ht: 64 in Wt: 148 lbs BSA: 1.75 m2 HR: 80 bpm BP: 140 / 80 mmHg Heart Rhythm: Sinus Rhythm Technical Quality: Fair Exam Date: 08/14/2024 2:07 PM Patient Status: O Admit Date: 08/14/2024 Exam Type: CA echo doppler color flow Complete two-dimensional, color flow and Doppler transthoracic echocardiogram is performed. Rubber Press Tender: Lidia Lin Attending Provider: Eliazar Moses DO Summary 1. Complete two-dimensional, color flow and Doppler transthoracic echocardiogram is performed. 2. Left ventricular chamber dimension is normal. 3. Left ventricular systolic function is normal, estimated at 65-70. 4. There is mild concentric increased left ventricular wall thickness. 5. The left ventricular diastolic function is grade I diastolic dysfunction. 6. Ventricular septum is sigmoid shaped. No resting LVOT obstruction. 7. E/e' 14 is mildly elevated. 8. The aortic valve is not well visualized. Cannot determine number of aortic valve leaflets. 9. 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 10. There is severe aortic valve stenosis with a peak velocity of 406 cm/s, mean gradient of 42 mmHg, and aortic valve area of 0.8 cm2. 11. The mitral valve has a mildly calcified annulus. 12. There is trace tricuspid valve regurgitation. 13. No pulmonary hypertension, estimated pulmonary arterial systolic pressure is 35 mmHg. Left Ventricle E/e' 14 is mildly elevated. Left ventricular chamber dimension is normal. Left ventricular systolic function is normal, estimated at 65-70. There is mild concentric increased left ventricular wall thickness. The left ventricular diastolic function is grade I diastolic dysfunction. Ventricular septum is sigmoid shaped. No resting LVOT obstruction. Right Ventricle Right ventricular chamber dimension is normal. Right ventricular systolic function is normal. Left Atria Left atrial chamber dimension is normal. Right Atria Right atrial chamber dimension is normal. Aortic Valve The aortic valve is not well visualized. Cannot determine number of aortic valve leaflets. 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 There is severe aortic valve stenosis with a peak velocity of 406 cm/s, mean gradient of 42 mmHg, and aortic valve area of 0.8 cm2. There is no aortic valve regurgitation. Pulmonic Valve There is no pulmonic regurgitation. Mitral Valve The mitral valve has a mildly calcified annulus. There is no mitral valve stenosis. There is no mitral valve regurgitation. Tricuspid Valve There is trace tricuspid valve regurgitation. No pulmonary hypertension, estimated pulmonary arterial systolic pressure is 35 mmHg. Pericardium/Pleural There is no pericardial effusion. Inferior Vena Cava Normal inferior vena cava with >50% collapse upon inspiration consistent with normal right atrial pressure, 5 mmHg. Aorta The aortic root size at the sinus of Valsalva is normal. Left Ventricular Outflow Tract Name Value Normal LVOT 2D LVOT Diameter 2.0 cm LVOT Doppler LVOT Peak Velocity 93 cm/s LVOT Peak Gradient 3 mmHg LVOT Mean Gradient 2 mmHg LVOT VTI 24 cm LVOT VTI/AV VTI Ratio 0.3 LVOT Stroke Volume 73 ml LVOT CO 4.5 l/min LVOT CI 2.5 l/min/m2 Pulmonic Valve Name Value Normal RVOT Doppler RVOT Peak Velocity 88 cm/s RVOT Peak Gradient 3 mmHg PV Doppler PV Peak Velocity 110 cm/s PV Peak Gradient 5 mmHg Mitral Valve Name Value Normal MV Diastolic Function MV E Peak Velocity 84 cm/s MV A Peak Velocity 134 cm/s MV E/A 0.6 MV Decel Time (PW) 251 ms MV Annular TDI MV E/e' (Septal) 24.6 MV E/e' (Lateral) 10.6 MV E/e' (Average) 17.6 Tricuspid Valve Name Value Normal TV Regurgitation Doppler TR Peak Velocity 275 cm/s TR Peak Gradient 30 mmHg Estimated PAP/RSVP RA Pressure 5 mmHg <=5 PA Systolic Pressure 35 mmHg <36 RV Systolic Pressure 35 mmHg <36 TV Annular TDI TV Lateral O[place] s' Velocity 7.7 cm/s >=9.5 Aorta Name Value Normal Ascending Aorta Ao Root Diameter (MM) 2.9 cm Ao Root Diam Index (MM) 1.7 cm/m2 Aortic Valve Name Value Normal AV Doppler AV Peak Velocity 406 cm/s AV Peak Gradient 66 mmHg AV Mean Gradient 42 mmHg AV VTI 93 cm AV Area (Cont Eq VTI) 0.8 cm2 >=3.0 AV Area (Cont Eq Rashaad) 0.7 cm2 AV DI (Rashaad) 0.23 AV Regurgitation 2D LVOT Area 3.1 cm2 Ventricles Name Value Normal LV Dimensions 2D/MM IVS Diastolic Thickness (2D) 0.9 cm 0.6-1.0 LVID Diastole (2D) 4.1 cm 4.2-5.8 LVIW Diastolic Thickness (2D) 0.9 cm 0.6-1.0 LVID Systole (2D) 2.7 cm 2.5-4.0 LVOT Diameter 2.0 cm LV Mass (2D Cubed) 116.12 g 88.00-224.00 LV Mass Index (2D Cubed) 66 g/m2 49-115 Relative Wall Thickness (2D) 0.45 <=0.42 LV Fractional Shortening/Ejection Fraction 2D/MM LV Fractional Shortening (2D) 35 % 25-43 LV EF (2D Teichholz) 65 % LV Diastolic Volume (4C MOD) 56 ml LV EF (4C MOD) 63 % LV Diastolic Volume (2C MOD) 88 ml LV EF (2C MOD) 68 % LV Diastolic Volume (BP MOD) 74 ml 62-150 LV Diastolic Volume Index (BP MOD) 42 ml/m2 34-74 LV Systolic Volume (BP MOD) 25 ml 21-61 LV Systolic Volume Index (BP MOD) 14 ml/m2 11-31 LV EF (BP MOD) 66 % 52-72 LV Diastolic Length (4C) 7.4 cm LV Systolic Length (4C) 6.0 cm LV Stroke Volume (4C MOD) 36 ml Atria Name Value Normal LA Dimensions LA Dimension (MM) 4.5 cm 3.0-4.0 LA Volume (4C A-L) 40 ml LA Volume (BP A-L) 43 ml RA Dimensions RA Systolic Major [place] Length (4C) 5.0 cm 2.1-2.7 RA Area (4C) 10.3 cm2 <=18.0 Report Signatures
== END 2024-08-14 13:27 | disposition home or self-care (01) ==
PROVIDERS: PCP Family Medicine; Visit Provider Internal Medicine Cardiovascular Disease
DX: I35.0 Nonrheumatic aortic (valve) stenosis (principal); I35.1 Nonrheumatic aortic (valve) insufficiency; I34.0 Nonrheumatic mitral (valve) insufficiency
CPT/HCPCS: 93306

== ENCOUNTER 2025-03-02 01:24 | Day surgery (SDC) | payer OTHER, SELFPAY ==
[2025-03-01 12:43] VITALS: BMI 27.5
[2025-03-02] VITALS (9 sets, daily range): BP systolic 127–188; BP diastolic 68–102; PULSE 67–100; RESP 16–25; TEMP 36.7; O2SAT 93–99
[2025-03-02] MEDS: fentaNYL CITRATE INJ (*CRX) 100 MCG/2 ML VIAL 25 MCG IV PUSH (07:55)
[2025-03-02] MEDS: MIDAZOLAM HCL (*CRX) 2 MG/2 ML VIAL IV PUSH (07:55)
--- NOTE | 2025-03-02 09:15 | PCCARD ---
03/02/25 -DR ROY COULD NOT PASS THE PROBE DOWN THE ESOPHAGUS. NEEDS TO BE RESCHEDULED WITH ANESTHESIA
== END 2025-03-02 09:16 | disposition home or self-care (01) ==
PROVIDERS: PCP Student in an Organized Health Care Education/Training Program; Visit Provider Internal Medicine Cardiovascular Disease
PROC: (CPT 93312; principal; 2025-03-02 08:00)
DX: I35.0 Nonrheumatic aortic (valve) stenosis (principal); Z53.8 Procedure and treatment not carried out for other reasons; E78.5 Hyperlipidemia, unspecified; D64.9 Anemia, unspecified; I25.10 Atherosclerotic heart disease of native coronary artery without angina pectoris; I12.9 Hypertensive chronic kidney disease with stage 1 through stage 4 chronic kidney disease, or unspecified chronic kidney disease; N18.30 Chronic kidney disease, stage 3 unspecified; E53.8 Deficiency of other specified B group vitamins; Z87.891 Personal history of nicotine dependence; Z86.73 Personal history of transient ischemic attack (TIA), and cerebral infarction without residual deficits; Z80.1 Family history of malignant neoplasm of trachea, bronchus and lung
CPT/HCPCS: 93312; 93320; 93325; J2250; J3010